=== PATIENT | female | born 1965 | race African-American/Black ===

== ENCOUNTER 2020-05-13 19:18 | Inpatient (IN) | payer SELFPAY ==
[~2020-05-13] VITALS: Ht 167.6 cm; Wt 68.0 kg
[2020-05-13] MEDS ORDERED: LORAZEPAM 2MG/ML CPJ IV STA (20:31)
[2020-05-13] MEDS ORDERED: SODIUM CHLORIDE 0.9% 1,000 ML IV ONE (20:31)
[2020-05-13 20:59] LABS: HEMATOCRIT. 41.2 % (36.0-48.0); HEMOGLOBIN. 13.3 g/dL (12.0-16.0); MEAN CORPUSCULAR HEMOGLOBIN 28.7 pg (28.0-32.0); MEAN CORPUSCULAR VOLUME 88.8 fL (81.0-99.0); MEAN PLATELET VOLUME 8.1 fl (7.4-10.4); PLATELET 193 x1000/uL (130-400); RED BLOOD CELL COUNT 4.64 mill/uL (4.2-5.4); RED CELL DISTRIBUTION WIDTH 15.4 % (11.6-14.6)
[2020-05-13 21:03] LABS: CHLORIDE 112 mEq/L (98-107)
[2020-05-13 21:07] LABS: ETHANOL BLOOD < 10 mg/dL
[2020-05-13 21:09] LABS: HCG SCREEN NEGATIVE
[2020-05-13 21:16] LABS: PLATELET ESTIMATE NORMAL
[2020-05-13 21:50] LABS: CLARITY URINE CLOUDY (CLEAR); COLOR URINE YELLOW (YELLOW); KETONES URINE 1+ (NEGATIVE); LEUKOCYTE ESTERASE URINE NEGATIVE (NEGATIVE); NITRITE URINE NEGATIVE (NEGATIVE); OCCULT BLOOD URINE TRACE (NEGATIVE); PROTEIN URINE 1+ (NEGATIVE); SPECIFIC GRAVITY URINE 1.025 (1.005-1.030); UROBILINOGEN URINE 0.2 E.U./dL (0.2-1.0)
[2020-05-13 21:59] LABS: *AMPHETAMINES SCREEN URINE NEGATIVE (NEGATIVE); *BARBITURATES SCREEN URINE NEGATIVE (NEGATIVE); *BENZODIAZEPINES SCREEN URINE NEGATIVE (NEGATIVE); *COCAINE SCREEN URINE NEGATIVE (NEGATIVE); CANNABINOID URINE SCREEN NEGATIVE (NEGATIVE); OPIATES URINE SCREEN NEGATIVE (NEGATIVE); PHENCYCLIDINE URINE SCREEN NEGATIVE (NEGATIVE)
[2020-05-13 22:00] LABS: METHADONE URINE SCREEN NEGATIVE (NEGATIVE)
[2020-05-13] MEDS ORDERED: CEFTRIAXONE 1 G PREMIX 50 ML IV ONE (23:45)
[2020-05-13] MEDS ORDERED: ASPIRIN 81MG TABLET PO ONE (23:45)
[2020-05-14] MEDS ORDERED: ONDANSETRON HCL 4MG/2ML INJ IV PRN (05:00)
[2020-05-14] MEDS ORDERED: LORAZEPAM 2MG/ML CPJ IV PRN (05:00)
[2020-05-14] MEDS ORDERED: CLONIDINE 0.1MG TABLET PO PRN (05:00)
[2020-05-14] MEDS ORDERED: DOCUSATE SODIUM 100MG CAPSULE PO PRN (05:00)
[2020-05-14] MEDS ORDERED: MAGNESIUM/ALUMINUM HYDROXIDE/SIMETHICONE 30ML UDC PO PRN (05:00)
[2020-05-14] MEDS ORDERED: HYDROCODONE/ACETAMINOPHEN 5/325MG TABLET PO PRN (05:00)
[2020-05-14] MEDS ORDERED: ACETAMINOPHEN 325MG TABLET PO PRN (05:00)
[2020-05-14] MEDS ORDERED: DEXT 5%/0.45% NACL KCL 10MEQ/L 1,000 ML IV SCH (05:30)
[2020-05-14] MEDS ORDERED: LEVOFLOXACIN 500MG PREMIX 100 ML IV SCH (10:00)
[2020-05-14] MEDS: METOPROLOL TARTRATE 25MG TABLET PO SCH ×2 (11:06→21:00)
[2020-05-14] MEDS: ENOXAPARIN 40MG/0.4ML SYR SUBCUT SCH (11:07)
[2020-05-14] MEDS: THIAMINE HCL 100MG TABLET PO SCH (11:07)
[2020-05-14] MEDS: MULTIVITAMINS,THER W-MINERALS TABLET PO SCH (11:07)
[2020-05-14 11:56] VITALS: BP 140/85
[2020-05-14 12:00] VITALS: BP 140/85
[2020-05-14 16:00] VITALS: BP 144/80
[2020-05-14 20:00] VITALS: BP 144/79
[2020-05-15] VITALS: BP 146/80
[2020-05-15 04:00] VITALS: BP 143/90
[2020-05-15 06:41] LABS: BASOPHILS % 0.3 % (0.0-2.0); EOSINOPHILS % 1.1 % (0.0-5.0); HEMATOCRIT. 41.3 % (36.0-48.0); HEMOGLOBIN. 13.4 g/dL (12.0-16.0); LYMPHOCYTES % 23.9 % (20.0-50.0); MEAN CORPUSCULAR HEMOGLOBIN 29.4 pg (28.0-32.0); MEAN CORPUSCULAR VOLUME 90.2 fL (81.0-99.0); MEAN PLATELET VOLUME 8.2 fl (7.4-10.4); MONOCYTES % 7.8 % (2.0-8.0); NEUTROPHILS % 66.9 % (40.0-76.0); PLATELET 203 x1000/uL (130-400); RED BLOOD CELL COUNT 4.58 mill/uL (4.2-5.4); RED CELL DISTRIBUTION WIDTH 15.2 % (11.6-14.6)
[2020-05-15 06:54] LABS: CHLORIDE 109 mEq/L (98-107)
[2020-05-15 07:02] LABS: LDL CHOLESTEROL 102 mg/dL (5-100)
[2020-05-15 07:04] LABS: HDL CHOLESTEROL 70 mg/dL (40-59)
[2020-05-15 08:00] VITALS: BP 148/81
[2020-05-15] MEDS: MULTIVITAMINS,THER W-MINERALS TABLET PO SCH (09:00)
[2020-05-15] MEDS: ENOXAPARIN 40MG/0.4ML SYR SUBCUT SCH (09:00)
[2020-05-15] MEDS: THIAMINE HCL 100MG TABLET PO SCH (09:00)
[2020-05-15] MEDS: METOPROLOL TARTRATE 25MG TABLET PO SCH ×2 (09:00→20:30)
[2020-05-15] MEDS: POTASSIUM CHLORIDE 20MEQ TABLET SR PO NR ×2 (10:15→11:15)
[2020-05-15] MEDS ORDERED: LEVOFLOXACIN 500MG PREMIX 100 ML IV SCH (11:00)
[2020-05-15 12:00] VITALS: BP 136/85
[2020-05-15 16:00] VITALS: BP 139/81
[2020-05-15] MEDS ORDERED: POTASSIUM CHLORIDE 20MEQ TABLET SR PO NR (18:00)
[2020-05-15 20:18] VITALS: BP 110/67
[2020-05-15] MEDS: ATORVASTATIN CALCIUM 10MG TABLET PO SCH ×2 (20:32→20:39)
[2020-05-16] VITALS: BP 113/74
[2020-05-16 04:00] VITALS: BP 113/71
[2020-05-16 08:00] VITALS: BP 127/79
[2020-05-16] MEDS: ENOXAPARIN 40MG/0.4ML SYR SUBCUT SCH (08:59)
[2020-05-16] MEDS: MULTIVITAMINS,THER W-MINERALS TABLET PO SCH (08:59)
[2020-05-16] MEDS: METOPROLOL TARTRATE 25MG TABLET PO SCH (08:59)
[2020-05-16] MEDS: THIAMINE HCL 100MG TABLET PO SCH (08:59)
[2020-05-16 12:00] VITALS: BP 141/86
== END 2020-05-16 12:18 | disposition home or self-care (01) | DRG 52 ==
LOC: ER 19:18 → EDBD 19:18 → EDBEDREQSVC 22:57 → EDBEDREQTM 22:57 → 6EST 23:39 → EDBEDREQSVC 05-14 08:38 → ENRESERV 05-14 10:51
PROVIDERS: ADMIT Hospitalist; ATTEND Hospitalist
DX: G93.40 Encephalopathy, unspecified (principal); I10 Essential (primary) hypertension; E87.6 Hypokalemia
CPT/HCPCS: 36415; 71045; 80053; 80061; 80305; 80307; 80320; 80329; 81003; 82140; 82962; 84443; 84484; 84703; 85025; 93005; 93970; 99285; J0696; J1650; J1956; J2060; J7030; G0480